=== PATIENT | male | born 1965 | race Caucasian/White ===

== ENCOUNTER 2017-05-31 04:03 | Observation (INO) | payer BC ==
[~2017-05-31] VITALS: Ht 180.3 cm; Wt 98.9 kg
--- NOTE | ~2017-05-31 | OP ---
PATIENT NAME: APRIL BARRETO MEDICAL RECORD: [id number] :65 LOCATION:[facility] ADMISSION DATE:05/31/17 SURGEON: LETTY VILLANUEVA MD DATE OF OPERATION: 05/31/2017 PROCEDURE: The patient underwent left heart catheterization, left ventricular angiography, coronary angiography. INDICATIONS: Unstable angina. PROCEDURE IN DETAIL: The patient was brought to the cardiac catheterization lab in a stable condition. Both groins were sterilely prepped and draped. We were then able to advance a sheath into the right common femoral artery using modified Seldinger technique. We were then able to utilize that position to introduce diagnostic catheters to selectively intubate the left coronary artery, the right coronary artery, and the left ventricular cavity respectively. FINDINGS: 1. Left main is normal. 2. The LAD has mild proximal plaquing and mid area of intramyocardial bridging with 40% stenosis. 3. The circumflex is normal, nondominant. 4. The ramus intermediate branch is normal, nondominant. 5. The right coronary artery is a dominant vessel and normal. HEMODYNAMICS: Left ventricular ejection fraction 65%, end-diastolic pressure is normal. No significant mitral regurgitation. No gradient across the aortic valve. IMPRESSION: The patient has mild coronary artery disease, mild intramyocardial bridge, preserved left ventricular systolic function. RECOMMENDATION: Look for other etiologies of the patient's chest pain syndrome. TRANSINT:[id number] Voice Confirmation ID: [id number] DOCUMENT ID: [id number] LETTY VILLANUEVA MD at 1111 CC: [id number] DICTATION DATE: 05/31/17 0908 [employer] BLASTING: 05/31/17 1014 DIS IN 06/04/17 [id number] [place] [address]
--- NOTE | ~2017-05-31 | HEMODYNAMI ---
PATIENT:APRIL BARRETO MEDICAL RECORD: [id number] : 65 LOCATION:[facility] ADMISSION DATE: 05/31/17 Generatedon:05/31/20179:08 Patient name: APRIL BARRETO Patient #: [id number] SSN: : 1965 Date of study: 05/31/2017 Page: Of Hemodynamic Procedure Report Patient Data Patient Demographics Procedure consent was obtained First Name: APRIL Gender: Male Last Name: ESTEVAN : 1965 Patient #: [id number] Age: 51 year(s) Race: Unknown Additional ID: [id number] Contact details Address: [facility] [address] State: [place] City: [place] Zip code: [address] Past Medical History Allergies: No known allergies Admission Admission Data Admission Date: 05/31/2017 Admission Time: 4:03 Lab Results Lab Result Date: 05/31/2017 Lab Result Time: 4:30 Biochemistry Name Units Result Min Max BUN mg/dl 12 --(-*--)-- 7 18 Creatinine mg/dl 1.3 --(---*)-- 0.6 1.3 CBC Name Units Result Min Max Hematocrit % 48.3 --(--*-)-- 42 54 Hemoglobin g/dl 16.9 --(---*)-- 13.5 17.5 Procedure Procedure Types Cath Procedure Diagnostic Procedure [facility] w/Coronaries Miscellaneous Procedures Moderate Sedation up to 15 minutes Procedure Description Procedure Date Procedure Date: 05/31/2017 Procedure Start Time: 8:48 Procedure End Time: 9:04 Procedure Staff Name Function Garrett Prado MD Performing Physician Ana Lim RN Nurse Fatemeh Sutton RT Scrub Flakito Polk RT Monitor Dasha Neff RT Monitor Indication Angina Procedure Data Cath Procedure Fluoroscopy Diagnostic fluoroscopy Total fluoroscopy Time: 1.7 time: 1.7 min min Diagnostic fluoroscopy Total fluoroscopy dose: 485 dose: 485 mGy mGy Contrast Material Contrast Material Type Amount (ml) Isovue 300 56 Entry Location Entry Primary Successful Side Size Upsize Upsize Entry Closure Succes sful Closure Location (Fr) 1 (Fr) 2 (Fr) Remarks Device Remarks Femoral Right 5 Fr Exoseal artery Estimated blood loss: 10 ml Diagnostic catheters Device Type Used For End Catheter Placement MULTIPACK JL 4.0 5Fr Procedure catheter MULTIPACK 3DRC 5Fr Procedure catheter MULTIPACK Pigtail 5 Fr Procedure catheter Procedure Complications No complications Procedure Medications Medication Administration Route Dosage 0.9% NaCl I.V. 100 ml/hr Oxygen NC 2 l/min Lidocaine 2% added to field 20 Heparin Flush Bag added to field 2 bags (1000units/500ml NS) Benadryl I.V. 50 mg Plavix P.O. 600 mg Fentanyl I.V. 25 mcg Versed I.V. 2 mg Versed I.V. 1 mg Versed I.V. 1 mg Fentanyl I.V. 50 mcg Fentanyl I.V. 25 mcg Hemodynamics Rest HGB: 16.9 (g/dl) Heart Rate: 77 (bpm) Pressure Samples Time Site Value (mmHg) Purpose Heart Use Rate(bpm) 8:58 LV 139/-11,19 Snapshot 82 8:58 LV 135/-9,19 EDP 79 Gradients Valve Time Site Site Mean SEP/DFP Peak To Heart Use 1 2 (mmHg) (sec/min) Peak Rate (mmHg) (bpm) Aortic 8:59 LV AO 84 Snapshots Pre Cath Intra NCS Post Cath Vital Signs Time Heart Resp SPO2 etCO2 NIBP (mmHg) Rhythm Pain Sedation Rate (ipm) (%) (mmHg) Status Level (bpm) 8:46:32 74 16 93 30.8 128/76(97) NSR 0 (11) 10(A) , No pain 8:50:44 75 16 98 17.2 127/75(100) NSR 0 (11) 10(A) , No pain 8:54:54 76 14 96 13.5 123/74(94) NSR 0 (11) 10(A) , No pain 8:59:02 85 17 97 14.2 125/82(97) NSR 0 (11) 10(A) , No pain 9:03:14 77 16 97 16.5 138/72(101) NSR 0 (11) 10(A) , No pain Medications Time Medication Route Dose Verified Delivered Reason Notes Eff ectiveness by by 8:18:51 0.9% NaCl I.V. 100 Garrett Ana used for ml/hr Eve Lim RN procedure 8:18:58 Oxygen NC 2 Garrett Ana Per l/min Eve Lim RN physician 8:19:05 Lidocaine 2% added 20ml Garrett Garrett for local to vial Eve Prado MD anesthetic field PEPPER 8:19:11 Heparin Flush added 2 Garrett Garrett used for Bag to bags Eve Prado MD procedure (1000units/500ml field PEPPER NS) 8:38:32 Benadryl I.V. 50 mg Garrett Ana Per Eve Lim RN physician 8:38:44 Plavix P.O. 600 Garrett Ana for mg Eve Lim RN antiplatelet therapy 8:48:18 Fentanyl I.V. 25 Garrett Ana for sedation mcg Eve Lim RN, MD 8:48:28 Versed I.V. 2 mg Garrett Ana for sedation Eve Lim RN, MD 8:50:58 Versed I.V. 1 mg Garrett Ana for sedation Eve Lim RN, MD 8:55:03 Versed I.V. 1 mg Garrett Ana for sedation Eve Lim RN, MD 8:55:11 Fentanyl I.V. 50 Garrett Ana for sedation mcg Eve Lim RN, MD 8:58:31 Fentanyl I.V. 25 Garrett Ana for sedation mcg Eve Lim RN, MD Procedure Log Time Note 8:11:21 Indication : Angina 8:11:25 Diagnostic Cath Status : Urgent 8:11:52 Ana Lim RN sent for patient. Start room use. 8:11:53 Time tracking: Regular hours 8:11:57 Plan of Care:Hemodynamics will remain stable., Cardiac rhythm will remain stable., Comfort level will be maintained., Respiratory function will remain adequate., Patient/ family verbilizes understanding of procedure., Procedure tolerated without complication., Recovers from procedure without complications.. 8:18:43 Lab Result : Creatinine 1.3 mg/dl 8:18:43 Lab Result : BUN 12 mg/dl 8:18:43 Lab Result : Hemoglobin 16.9 g/dl 8:18:43 Lab Result : Hematocrit 48.3 % 8:18:51 0.9% NaCl 100 ml/hr I.V. was administered by Ana Lim RN; used for procedure; 8:18:58 Oxygen 2 l/min NC was administered by Ana Lim RN; Per physician; 8:19:05 Lidocaine 2% 20ml vial added to field was administered by Garrett Prado MD; for local anesthetic; 8:19:11 Heparin Flush Bag (1000units/500ml NS) 2 bags added to field was administered by Garrett Prado MD; used for procedure; 8:31:02 Patient received from ED to CCL 2 Alert and oriented. Tansferred to table in Supine position. 8:31:03 Warm blankets applied, and olga hugger turned on for patient comfort. 8:31:04 Correct patient and procedure confirmed by team. 8:31:06 Signed procedure consent form obtained from patient. 8:31:06 ECG and BP/O2 sat monitors applied to patient. 8:31:15 H&P Date Dictated: 05/31/2017 ER History on chart., New H&P dictated by physician.. 8:31:17 Pre-procedure instructions explained to patient. 8:31:17 Pre-op teaching completed and patient verbalized understanding. 8:31:18 Family in waiting room. 8:31:23 Patient NPO since Midnight. 8:31:28 Patient allergic to No known allergies 8:38:32 Benadryl 50 mg I.V. was administered by Ana Lim RN; Per physician; 8:38:44 Plavix 600 mg P.O. was administered by Ana Lim RN; for antiplatelet therapy; 8:43:18 Was the patient premedicated? Yes 8:43:26 Is patient on blood thinner?No 8:43:32 Patient diabetic? No. 8:43:37 Snore? Yes 8:43:39 Sleep apnea? No 8:43:43 Dentures? No ? 8:43:55 Patient pain scale 6/10 ?. 8:44:20 IV patent on arrival in right forearm with 0.9% NaCl at O. 8:44:25 Lab results completed and on chart. 8:44:38 Right groin area was prepped with chlora-prep and draped in sterile fashion 8:44:39 Alarms reviewed by R. N. 8:44:40 Sharps counted by scrub and verified by R.NDanii 8:44:46 Physician paged 8:44:55 Physician arrived 8:44:55 --------ALL STOP TIME OUT------ 8:44:56 Final Timeout: patient, procedure, and site verified with staff and physician. All members of the team are in agreement. 8:44:59 Right groin site verified by team. 8:45:14 Physical assessment completed. ASA score P 2 - A patient with mild systemic disease as per Garrett Prado MD. 8:45:28 Sedation plan: IV Moderate Sedation Medication:Versed, Fentanyl 8:45:35 Vital chart was started 8:45:48 Baseline sample Acquired. 8:45:51 Rhythm: sinus rhythm 8:45:53 Full Disclosure recording started 8:47:58 Use device set Femoral Dx 8:47:59 ACIST Syringe (18036) opened to sterile field. 8:47:59 Bag Decanter (2002S) opened to sterile field. 8:48:00 Medline Cath Pack ([id number]) opened to sterile field. 8:48:00 SHEATH 5FR [place] (ZZW904) opened to sterile field. 8:48:02 DIAGNOSTIC WIRE .035 260cm J wire (961307) opened to sterile field. 8:48:03 ACIST Hand Control (70999) opened to sterile field. 8:48:03 ACIST Manifold (49152) opened to sterile field. 8:48:04 DIAGNOSTIC Multipack 5Fr catheter set (CG5530) opened to sterile field. 8:48:04 Tegaderm 4 x 4 (1626W) opened to sterile field. 8:48:05 PERCUTANEOUS ENTRY 19GA needle opened to sterile field. 8:48:09 Procedure started. 8:48:18 Fentanyl 25 mcg I.V. was administered by Ana Lim RN; for sedation; 8:48:28 Versed 2 mg I.V. was administered by Ana Lim RN; for sedation; 8:48:56 Local anesthetic to right femoral artery with Lidocaine 2% by Garrett Prado MD.INITIAL ACCESS ONLY 8:50:03 Access obtained with 4Fr micropunture. 8:50:10 A 5 Fr sheath was inserted into the Right Femoral artery 8:50:58 Versed 1 mg I.V. was administered by Ana Lim RN; for sedation; 8:51:07 A MULTIPACK JL 4.0 5Fr catheter was advanced over the wire and used for Procedure. 8:51:18 LCA angiography performed. 8:54:33 A MULTIPACK 3DRC 5Fr catheter was advanced over the wire and used for Procedure. 8:54:54 RCA angiography performed. 8:55:03 Versed 1 mg I.V. was administered by Ana Lim RN; for sedation; 8:55:11 Fentanyl 50 mcg I.V. was administered by Ana Lim RN; for sedation; 8:56:06 Catheter removed. 8:56:31 A MULTIPACK Pigtail 5 Fr catheter was advanced over the wire and used for Procedure. 8:57:50 LV angiography performed. 8:58:31 Fentanyl 25 mcg I.V. was administered by Ana Lim RN; for sedation; 9:00:11 EXOSEAL 5Fr (EX500) opened to sterile field. 9:00:12 MICROPUNCTURE 4FR [place] (W80727) opened to sterile field. 9:00:19 Catheter removed. 9:00:32 Sheath removed intact; hemostasis achieved with Exoseal to the Right Femoral artery. 9:00:51 Procedure ended.(Physican Out) 9:01:23 Fluoroscopy time 01.70 minutes. 9:01:27 Fluoroscopy dose: 485 mGy 9:01:27 Flurop Dose total: 485 9:01:39 Contrast amount:Isovue 300 56ml. 9:01:41 Sharps counted by scrub and verified by R.N. 9:01:42 Insertion/operative site no bleeding no hematoma. 9:01:45 Post-op/insertion site Right Femoral artery dressed using a 4 x 4 and Tegaderm. 9:01:48 Post right femoral artery:stable 9:02:35 Post Procedure Pulses reassessed and unchanged 9:02:49 Post-procedure physical assessment completed. ASA score P 2 - A patient with mild systemic disease as per Garrett Prado MD. 9:02:52 Post procedure rhythm: unchanged. 9:02:55 Estimated blood loss: 10 ml 9:02:56 Post procedure instruction explained to patient.Patient verbalizes understanding. 9:03:23 Procedure type changed to Cath procedure, Diagnostic procedure, LHC, LHC w/Coronaries, Miscellaneous Procedures, Moderate Sedation up to 15 minutes 9:03:25 Procedure and supply charges have been captured, reviewed, submitted and are correct. 9:03:54 Procedure Complication : No complications 9:03:57 Vital chart was stopped 9:03:58 See physician's report for complete and final results. 9:04:01 Report given to Pre/Post Procedure Room. 9:04:16 Patient transfered to Pre/Post Procedure Room with Stretcher. 9:04:19 Procedure ended. 9:04:19 Full Disclosure recording stopped 9:04:22 End room use (Document Last) Device Usage Item Name Manufacture Quantity Catalog Hospital Part Current Minimal Lot# / Number Charge Number Stock Stock Serial# Code ACIST Syringe Acist 1 92862 878173 129010 012853 20 (51379) [employer] Bag Decanter Microtek 1 2001S 663119 15188 722437 5 (2001S) Medical Inc. Medline Cath Cardinal 1 [id number] 594769 72076 768149 5 Pack Health ([id number]) SHEATH 5FR Terumo 1 MME450 873414 818509 939011 40 [place] (TRQ526) DIAGNOSTIC [facility] 1 391573 933097 377140 329636 30 WIRE .035 260cm J wire (172717) ACIST Hand Acist 1 98316 389510 190320 565345 5 Control Medical (50893) Systems Inc ACIST Acist 1 55400 890587 844266 826210 5 Manifold Medical (23010) Systems Inc DIAGNOSTIC Cardinal 1 XG4706 200019 55619 386285 30 Multipack 5Fr Health catheter set (ZE4844) Tegaderm 4 x 3M 1 1626W 469504 759685 129367 5 4 (1626W) PERCUTANEOUS [employer] Medical 1 I32415 641165 538094 5 ENTRY 19GA needle MULTIPACK JL Cardinal 1 233963 5 4.0 5Fr Health catheter MULTIPACK Cardinal 1 811131 5 3DRC 5Fr Health catheter MULTIPACK Cardinal 1 838365 5 Pigtail 5 Fr Health catheter EXOSEAL 5Fr Cardinal 1 EX500 426849 532028 221408 10 (EX500) Health MICROPUNCTURE [employer] Medical 1 G01070 170834 218831 463905 5 4FR [employer] (V03573) Signature Audit [place] Stage Time Signature Unsigned Intra-Procedure 05/31/2017 Dasha Neff 9:08:21 AM RT(R) Signatures Monitor : Flakito Polk RT Signature : Date : Time : Monitor : Dasha Neff Signature : RT Date : Time : [address] [place] [address]
[2017-05-31 04:40] LABS: BASOPHILS 0.1 % (0-2); EOSINOPHILS 1.2 % (0-7); HEMATOCRIT 48.3 % (42.0-54.0); HEMOGLOBIN 16.9 g/dL (13.5-17.5); IMMATURE GRANULOCYTES 0.2 % (0-5); MCH 33.3 pg (26.0-34.0); MCV 95.3 fL (80.0-100.0); MEAN PLATELET VOLUME 9.8 fL (7.4-10.4); MONOCYTES 3.8 % (2-11); NEUTROPHILS 77.7 % (40-80); PLATELET COUNT 211 10x3/uL (130-400); RBC 5.07 10x6/uL (4.20-6.10); RDW 12.9 % (11.5-14.5)
[2017-05-31 04:56] LABS: ALBUMIN 3.7 g/dL (3.4-5.0); ALKALINE PHOSPHATASE 67 U/L (46-116); ALT (SGPT) 21 U/L (10-68); BILIRUBIN - TOTAL 1.28 mg/dL (0.2-1.3); CALC OSMOLALITY 279 mosm/kg (275-300); CALCIUM 8.7 mg/dL (8.5-10.1); CARBON DIOXIDE 21.4 mmol/L (21.0-32.0); CHLORIDE - SERUM 105 mmol/L (98-107); CREATININE - SERUM 1.3 mg/dL (0.6-1.3); GLUCOSE 108 mg/dL (74-106); POTASSIUM - SERUM 3.3 mmol/L (3.5-5.1); PROTEIN - SERUM 6.6 g/dL (6.4-8.2); SODIUM 140 mmol/L (136-145); UREA NITROGEN 12 mg/dL (7-18); eGFR NON AFRICAN AMERICAN 62 mL/min (90-120)
[2017-05-31 05:05] LABS: CHOL - HDL RATIO 4.2 ratio (2.3-4.9); CHOLESTEROL, TOTAL 137 mg/dL (0-200); CKMB 0.3 U/L (0.0-3.6); CREATINE KINASE 54 UL (21-232); HDL CHOLESTEROL 33 mg/dL (32-96); LDL CHOLESTEROL 85 mg/dL (0-100); LDL-HDL RATIO 2.6 ratio (1.5-3.5); TRIGLYCERIDE 97 mg/dL (30-200)
[2017-05-31 05:09] LABS: TROPONIN-I < 0.017 ng/mL (0.000-0.060)
[2017-05-31] MEDS ORDERED: HYDROCODON-ACET15 ML PO (09:46)
[2017-05-31 20:00] VITALS: BP 142/87
[2017-06-01] VITALS (7 sets, daily range): BP systolic 93–146; BP diastolic 43–87; Ht 180.3 cm; Wt 98.9 kg
[2017-06-01 21:28] LABS: BASOPHILS 0.2 % (0-2); EOSINOPHILS 3.8 % (0-7); HEMATOCRIT 47.9 % (42.0-54.0); HEMOGLOBIN 16.7 g/dL (13.5-17.5); IMMATURE GRANULOCYTES 0.2 % (0-5); LYMPHOCYTES 31.5 % (15-50); MCHC 34.9 g/dL (31.0-37.0); MEAN PLATELET VOLUME 9.7 fL (7.4-10.4); MONOCYTES 5.4 % (2-11); NEUTROPHILS 58.9 % (40-80); PLATELET COUNT 206 10x3/uL (130-400); RBC 4.91 10x6/uL (4.20-6.10); RDW 13.1 % (11.5-14.5); WBC 10.9 10x3/uL (4.8-10.8)
[2017-06-01 21:29] LABS: MCV 97.6 fL (80.0-100.0)
[2017-06-01 21:38] LABS: ALBUMIN 3.8 g/dL (3.4-5.0); ALKALINE PHOSPHATASE 70 U/L (46-116); ALT (SGPT) 19 U/L (10-68); BILIRUBIN - TOTAL 1.09 mg/dL (0.2-1.3); CALC OSMOLALITY 276 mosm/kg (275-300); CARBON DIOXIDE 26.2 mmol/L (21.0-32.0); CHLORIDE - SERUM 102 mmol/L (98-107); CREATININE - SERUM 1.2 mg/dL (0.6-1.3); GLUCOSE 99 mg/dL (74-106); POTASSIUM - SERUM 3.5 mmol/L (3.5-5.1); PROTEIN - SERUM 6.8 g/dL (6.4-8.2); SODIUM 140 mmol/L (136-145); eGFR NON AFRICAN AMERICAN 68 mL/min (90-120)
[2017-06-01 21:39] LABS: UREA NITROGEN 7 mg/dL (7-18)
[2017-06-01 21:49] LABS: CKMB 0.6 U/L (0.0-3.6); CREATINE KINASE 60 UL (21-232); MAGNESIUM - SERUM 2.1 mg/dL (1.8-2.4)
[2017-06-01 21:50] LABS: TROPONIN-I < 0.017 ng/mL (0.000-0.060)
[2017-06-02] VITALS: BP 140/80
[2017-06-02 04:00] VITALS: BP 149/90
[2017-06-02 11:34] VITALS: BP 124/74
[2017-06-02 22:00] VITALS: BP 136/71
[2017-06-03 01:42] VITALS: BP 140/83
[2017-06-03 05:55] VITALS: BP 104/76
[2017-06-03 11:50] LABS: BASOPHILS 0.4 % (0-2); HEMATOCRIT 42.8 % (42.0-54.0); HEMOGLOBIN 14.5 g/dL (13.5-17.5); IMMATURE GRANULOCYTES 0.1 % (0-5); LYMPHOCYTES 31.5 % (15-50); MCHC 33.9 g/dL (31.0-37.0); MCV 97.3 fL (80.0-100.0); MEAN PLATELET VOLUME 9.6 fL (7.4-10.4); MONOCYTES 5.7 % (2-11); NEUTROPHILS 57.3 % (40-80)
[2017-06-03 11:55] LABS: PLATELET COUNT 158 10x3/uL (130-400); WBC 6.9 10x3/uL (4.8-10.8)
[2017-06-03 12:17] LABS: ALBUMIN 3.1 g/dL (3.4-5.0); ALKALINE PHOSPHATASE 57 U/L (46-116); ALT (SGPT) 18 U/L (10-68); BILIRUBIN - TOTAL 1.29 mg/dL (0.2-1.3); CALC OSMOLALITY 271 mosm/kg (275-300); CARBON DIOXIDE 29.1 mmol/L (21.0-32.0); CHLORIDE - SERUM 104 mmol/L (98-107); CREATININE - SERUM 1.1 mg/dL (0.6-1.3); GLUCOSE 106 mg/dL (74-106); POTASSIUM - SERUM 3.5 mmol/L (3.5-5.1); PROTEIN - SERUM 5.7 g/dL (6.4-8.2); SODIUM 137 mmol/L (136-145); UREA NITROGEN 8 mg/dL (7-18); eGFR NON AFRICAN AMERICAN 75 mL/min (90-120)
[2017-06-03 13:22] VITALS: BP 114/67
[2017-06-03 17:29] VITALS: BP 129/72
[2017-06-03 20:00] VITALS: BP 138/86
[2017-06-04] VITALS: BP 143/77
[2017-06-04 08:57] LABS: HEMATOCRIT 41.5 % (42.0-54.0); HEMOGLOBIN 14.5 g/dL (13.5-17.5); LYMPHOCYTES 33.2 % (15-50); MCH 33.7 pg (26.0-34.0); MCHC 34.9 g/dL (31.0-37.0); MCV 96.5 fL (80.0-100.0); MEAN PLATELET VOLUME 9.2 fL (7.4-10.4); NEUTROPHILS 61.3 % (40-80); PLATELET COUNT 155 10x3/uL (130-400); RDW 13.3 % (11.5-14.5); WBC 6.2 10x3/uL (4.8-10.8)
[2017-06-04 09:28] VITALS: BP 116/66
[2017-06-04 09:31] LABS: ALBUMIN 2.9 g/dL (3.4-5.0); ALKALINE PHOSPHATASE 54 U/L (46-116); ALT (SGPT) 19 U/L (10-68); CALC OSMOLALITY 277 mosm/kg (275-300); CALCIUM 7.9 mg/dL (8.5-10.1); CARBON DIOXIDE 30.3 mmol/L (21.0-32.0); CHLORIDE - SERUM 105 mmol/L (98-107); GLUCOSE 110 mg/dL (74-106); POTASSIUM - SERUM 3.6 mmol/L (3.5-5.1); PROTEIN - SERUM 5.4 g/dL (6.4-8.2); SODIUM 140 mmol/L (136-145); UREA NITROGEN 8 mg/dL (7-18); eGFR NON AFRICAN AMERICAN 84 mL/min (90-120)
[2017-06-04 12:41] VITALS: BP 129/77
[2017-06-04] MEDS ORDERED: REGLAN10 MG PO (14:44)
[2017-06-04] MEDS ORDERED: PROTONIX40 MG PO (14:44)
== END 2017-06-04 17:17 | disposition home or self-care (01) ==
LOC: D.CATH 04:03 → D.ER 04:03 → EDSTATUS 08:32 → D.MS 19:32 → D.CATH 19:33 → OBSVTIME 19:34 → D.MS 19:34 → D.SDCHOLD 06-04 13:16 → D.MS 06-04 13:16
PROVIDERS: Emergency Medicine; Internal Medicine Nephrology
DX: R07.89 Other chest pain (principal); I25.110 Atherosclerotic heart disease of native coronary artery with unstable angina pectoris; Q24.5 Malformation of coronary vessels; K21.9 Gastro-esophageal reflux disease without esophagitis; K22.4 Dyskinesia of esophagus; K21.0 Gastro-esophageal reflux disease with esophagitis